=== PATIENT | male | born 1950 | race Native Hawaiian/Other Pacific Islander ===

== ENCOUNTER 2021-04-05 21:17 | Emergency (ER) | payer OTHER ==
[~2021-04-05] VITALS: Ht 185.4 cm; Wt 79.4 kg
[2021-04-05 21:55] LABS: PLATELET COUNT 200 K/uL (142-355)
[2021-04-05 22:02] LABS: POTASSIUM 4.5 mmol/L (3.6-5.2)
[2021-04-05 22:27] VITALS: BP 123/81; TEMP 98.9
[2021-04-06] MEDS ORDERED: CLON1TAB18 PO (09:48)
[2021-04-06] MEDS ORDERED: AMLODIPINE BESYLATE PO (09:49)
[2021-04-06] MEDS ORDERED: ZIPRASIDONE HCL20 MG PO (09:50)
[2021-04-06] MEDS ORDERED: CALCITRIOL0.25 MCG PO (09:51)
[2021-04-06] MEDS ORDERED: LIPITOR20 MG PO (09:51)
[2021-04-06] MEDS ORDERED: [UNRECOGNIZED DRUG - OTHER] PO ×3 (09:53→10:02)
[2021-04-06] MEDS ORDERED: CLONIDINE HYDR0.1 M2 PO (09:55)
[2021-04-06] MEDS ORDERED: DIVALPROEX500 MG PO (09:56)
[2021-04-06] MEDS ORDERED: LINZESS145 MCG PO (09:57)
[2021-04-06] MEDS ORDERED: OLANZAPINE15 MG PO (09:58)
[2021-04-06] MEDS ORDERED: SPIRONOLACT25 MG PO (09:59)
[2021-04-06] MEDS ORDERED: DOXAZOSIN2 M1 PO (10:00)
[2021-04-06] MEDS ORDERED: BENZTROPINE2 MG PO (10:01)
[2021-04-06] MEDS ORDERED: CARV25TA PO (10:01)
[2021-04-06] MEDS ORDERED: DIVALPROEX250 M1 PO (10:03)
[2021-04-06] MEDS ORDERED: OXCARBAZEPIN300 MG PO (10:05)
[2021-04-06] MEDS ORDERED: MEDROXYPR AC10 MG PO (10:06)
[2021-04-06] MEDS ORDERED: LOSA50TA PO (10:08)
[2021-04-06] MEDS ORDERED: FERROUS SULF325 MG PO (10:09)
[2021-04-06] MEDS ORDERED: MELATONIN3 M1 PO (10:10)
[2021-04-06] MEDS ORDERED: MILK OF MA400 MG/5 M PO (10:11)
[2021-04-06] MEDS ORDERED: TYLENOL325 MG PO (10:11)
[2021-04-06] MEDS ORDERED: VITAMIN C500 M7 PO (10:13)
== END 2021-04-05 22:33 | disposition still patient (30) ==
LOC: ED 21:17
PROVIDERS: Emergency Medicine
DX: R45.1 Restlessness and agitation (principal); I50.9 Heart failure, unspecified; I10 Essential (primary) hypertension; E11.9 Type 2 diabetes mellitus without complications; N18.9 Chronic kidney disease, unspecified; M19.90 Unspecified osteoarthritis, unspecified site; Z11.52 Encounter for screening for COVID-19; Z04.6 Encounter for general psychiatric examination, requested by authority
CPT/HCPCS: 36415; 80053; 85027; 87635; 93005; 99283; U0003

== ENCOUNTER 2021-07-20 20:15 | Emergency (ER) | payer OTHER ==
[~2021-07-20] VITALS: Ht 175.3 cm; Wt 81.2 kg
[~2021-07-20 20:15] MED LIST: AMLODIPINE BESYLATE PO; BENZTROPINE2 MG PO; CALCITRIOL0.25 MCG PO; CARV25TA PO; CHLO50TA22 PO; CLON0.5T36 PO; CLON1TAB18 PO; CLONIDINE HYDR0.1 M2 PO; DIVALPROEX250 M1 PO; DIVALPROEX500 MG PO; DOXAZOSIN2 M1 PO; FERROUS SULF325 MG PO; FOLI1TAB26 PO; LINZESS145 MCG PO; LIPITOR20 MG PO; LOSA50TA PO; MEDROXYPR AC10 MG PO; MELATONIN3 M1 PO; MILK OF MA400 MG/5 M PO; OLANZAPINE15 MG PO; OXCARBAZEPIN300 MG PO; SPIRONOLACT25 MG PO; TYLENOL325 MG PO; VITAMIN C500 M7 PO; ZIPR80CA PO; ZIPRASIDONE HCL20 MG PO; [UNRECOGNIZED DRUG - OTHER] PO
[2021-07-20 21:07] LABS: PLATELET COUNT 156 K/uL (142-355)
[2021-07-20 21:21] LABS: POTASSIUM 5.2 mmol/L (3.6-5.2)
[2021-07-20 21:45] VITALS: BP 187/91; TEMP 98.6
[2021-07-21] MEDS ORDERED: TRAZ50TA36 PO (13:47)
[2021-07-21] MEDS ORDERED: LORA2INJ21 IM (13:48)
[2021-07-21] MEDS ORDERED: HALO5INJ3 IM (13:52)
== END 2021-07-20 21:45 | disposition still patient (30) ==
LOC: ED 20:15
PROVIDERS: Hospitalist
DX: F25.8 Other schizoaffective disorders (principal); F22 Delusional disorders; N18.9 Chronic kidney disease, unspecified; Z11.52 Encounter for screening for COVID-19; Z04.6 Encounter for general psychiatric examination, requested by authority
CPT/HCPCS: 36415; 80053; 80164; 81000; 85027; 87635; 93005; 99283; 99284; U0003

== ENCOUNTER → 2021-12-02 | Emergency (ER) | payer OTHER ==
[~2021-12-02] VITALS: Ht 180.3 cm; Wt 82.6 kg
[~2021-12-02] MED LIST changes: +AMLODIPINE PO; +ARIPIPRAZOLE5 MG PO; +CHLORPROMAZINE200 MG PO; +CLON0.1T16 PO; +HALO50IN4 IM; +HALO5INJ3 IM; +LORA2INJ21 IM; +MEDR150I3 IM; +MELATONIN MAXIMU5 MG PO; +MELATONIN5 M2 PO; +METO-837 PO; +OLANZAPINE10 MG PO; +RISP0.25 PO; +RISPERDAL4 MG PO; +TRAZ50TA36 PO; +ZIPR20IN IM
[2021-12-02 17:07] VITALS: BP 148/94; TEMP 97.66
[2021-12-02 17:52] LABS: PLATELET COUNT 215 K/uL (142-355)
[2021-12-02 18:01] LABS: POTASSIUM 5.2 mmol/L (3.6-5.2)
== END ==
LOC: ED 17:07
PROVIDERS: Emergency Medicine
DX: F20.0 Paranoid schizophrenia (principal); R45.1 Restlessness and agitation; Z11.52 Encounter for screening for COVID-19; Z04.6 Encounter for general psychiatric examination, requested by authority
CPT/HCPCS: 80053; 85027; 87635; 99283; U0003